=== PATIENT | male | born 1950 | race Caucasian/White ===

== ENCOUNTER 2021-03-04 20:09 | Emergency (ER) | payer OTHER ==
[~2021-03-04] VITALS: Wt 83.9 kg
[~2021-03-04 20:09] MED LIST: ASPIRIN81 MG PO; VICODIN 500 MG-1 TAB PO
[2021-03-04] MEDS ORDERED: DOXYCYCLINE100 M3 PO (22:26)
== END 2021-03-04 22:44 | disposition home or self-care (01) ==
LOC: ED 20:09
DX: S70.352A Superficial foreign body, left thigh, initial encounter (principal); Z79.899 Other long term (current) drug therapy; X58.XXXA Exposure to other specified factors, initial encounter; Y93.89 Activity, other specified; Y92.89 Other specified places as the place of occurrence of the external cause; Y99.8 Other external cause status

== ENCOUNTER 2025-02-28 20:39 | Emergency (ER) | payer MEDICARE ==
[~2025-02-28] VITALS: Ht 175.2 cm; Wt 83.9 kg
[~2025-02-28 20:39] MED LIST changes: +AMOXICILLIN875 MG PO; +AZITHROMYCIN500 M2 PO; +CLOPIDOGREL75 MG PO; +DOXYCYCLINE100 M3 PO; +FUROSEMIDE40 MG PO; +HYDROCHLOROTHIA25 M1 PO; +LISINOPRIL40 MG PO; +METOPROLOL TART50 M1 PO; +OMNICEF300 MG PO; +POTASSIUM CHLO10 ME5 PO; +VIBRAMYCIN100 MG PO
[2025-02-28] MEDS ORDERED: Albuterol Sulf/Ipratropium 3 ML VIAL NEB ONE (21:25)
[2025-02-28] MEDS ORDERED: methylPREDNISolone sod succ 125 MG VIAL IV ONE (21:25)
[2025-02-28] MEDS ORDERED: SODIUM CHLORIDE 0.9% 1,000 ML IV ONE (21:25)
[2025-02-28 21:55] LABS: BASO % 0.1 % (0.0-1.0); EOS # 0.1 10*3/uL (0.0-0.4); EOS % 0.8 % (1.0-4.0); HEMATOCRIT 37.8 % (42.0-52.0); MEAN CELL VOLUME 97.2 fl (80.0-94.0); MEAN CORPUSCULAR HGB 31.9 pg (27.0-31.0); MEAN CORPUSCULAR HGB CONC 32.8 g/dl (33.0-37.0); MEAN PLATELET VOLUME 10.2 fl (9.6-12.3); MONO # 0.6 10*3/uL (0.1-1.0); NEUT # 9.4 10*3/uL (2.3-7.9); NEUT % 88.7 % (47.0-73.0); PLATELET COUNT AUTOMATED 263 10*3/uL (130-400); RED BLOOD COUNT 3.89 10*6/uL (4.50-5.90); RED CELL DISTRI WIDTH 12.4 % (0-14.5); WHITE BLOOD COUNT 10.6 10*3/uL (4.8-10.8)
[2025-02-28 22:06] LABS: POTASSIUM 4.5 mmol/L (3.4-5.1)
[2025-02-28] MEDS ORDERED: PREDNISONE20 M1 PO (23:40)
[2025-02-28] MEDS ORDERED: ZITHROMAX250 MG PO (23:40)
== END 2025-02-28 23:45 | disposition home or self-care (01) ==
LOC: ED 20:39
PROVIDERS: Internal Medicine
DX: J44.1 Chronic obstructive pulmonary disease with (acute) exacerbation (principal); N17.9 Acute kidney failure, unspecified; N18.9 Chronic kidney disease, unspecified; D53.9 Nutritional anemia, unspecified; Z79.899 Other long term (current) drug therapy; Z87.891 Personal history of nicotine dependence